=== PATIENT | male | born 1945 | race Caucasian/White ===

== ENCOUNTER 2020-01-03 14:15 | Observation (INO) ==
[2020-01-03 16:23] LABS: ABS Basophils 0.1 10^3/ul (0-0.2); ABS Eosinophils 0.3 10^3/ul (0-0.6); ABS Lymphocytes 1.2 10^3/ul (1.0-4.8); ABS Monocytes 0.8 10^3/ul (0-0.8); Eosinophil % 3.5 %; Hematocrit 34 % (42-52); Lymphocyte % 14.8 %; Mean Corpuscular HGB Conc 35 g/dL (31-36); Mean Corpuscular Hemoglobin 30 pg (27-31); Mean Corpuscular Volume 87 fL (80-94); Mean Platelet Volume 7.3 fL (7.4-10.4); Platelet Count 419 10^3/uL (150-450); Red Blood Count 3.94 10^6 /uL (4.18-5.48); Red Cell Distribution Width 17 % (10-15); White Blood Count 8.3 10^3/uL (3.5-10.8)
[2020-01-03 17:14] LABS: Albumin 3.8 g/dL (3.2-5.2); BUN/Creatinine Ratio 12.8 (8-20); Calcium 9.9 mg/dL (8.6-10.3); EGFR African American 80.5 (>60); EGFR Non-African American 66.5 (>60); Potassium 3.4 mmol/L (3.5-5.0); Total Bilirubin 0.7 mg/dL (0.2-1.0); Total Protein 7.8 g/dL (6.4-8.9)
[2020-01-03] MEDS ORDERED: NS 0.9% 1000 ml BAG 1,000 ML IV ONE (17:20)
[2020-01-03] MEDS ORDERED: Iohexol 350 (CONTRAST) 500 ML MDV IV ONE (17:28)
[2020-01-03] MEDS ORDERED: Ondansetron 4 mg VIAL 2 MG/ML 2 ml VIAL IV PRN (17:46)
[2020-01-03] MEDS ORDERED: Enoxaparin 40 MG/0.4 ML SYR SUBCUT SCH (18:00)
[2020-01-03 18:34] LABS: % Iron Saturation 14 % (15-55); Iron 38 ug/dL (50-212); Total Iron Binding Capacity 280 mcg/dL (250-450); Transferrin 200 mg/dL (203-362)
[2020-01-03 18:54] LABS: Ferritin 995.5 ng/mL (24-336)
[2020-01-03 22:35] LABS: Urine Appearance Clear; Urine Bilirubin Negative (Negative); Urine Blood Negative (Negative); Urine Color Yellow; Urine Glucose Negative (Negative); Urine Ketones Trace (Negative); Urine Nitrite Negative (Negative); Urine Protein Negative (Negative); Urine Specific Gravity 1.044 (1.010-1.030); Urine Urobilinogen Negative (Negative)
[2020-01-03 22:46] LABS: LDH 832 U/L (140-271)
[2020-01-03] MEDS ORDERED: Polyethylene Glycol 3350 17 GM PACKET PO PRN (23:22)
[2020-01-04] MEDS: Senna TAB 8.6 mg TAB PO PRN ×2 (00:11→12:15)
[2020-01-04 05:00] LABS: Hematocrit 29 % (42-52); Mean Corpuscular HGB Conc 35 g/dL (31-36); Mean Corpuscular Hemoglobin 30 pg (27-31); Mean Corpuscular Volume 87 fL (80-94); Mean Platelet Volume 7.2 fL (7.4-10.4); Platelet Count 332 10^3/uL (150-450); Red Blood Count 3.32 10^6 /uL (4.18-5.48); Red Cell Distribution Width 17 % (10-15); White Blood Count 6.8 10^3/uL (3.5-10.8)
[2020-01-04 05:11] LABS: BUN/Creatinine Ratio 11.8 (8-20); Calcium 8.5 mg/dL (8.6-10.3); EGFR African American 86.9 (>60); EGFR Non-African American 71.8 (>60); Magnesium 1.5 mg/dL (1.9-2.7); Potassium 3.4 mmol/L (3.5-5.0)
[2020-01-04] MEDS: Nystatin SUSPENSION 100,000 UNITS/ML UDC PO SCH ×3 (05:13→14:23)
[2020-01-04] MEDS ORDERED: Potassium Chlor 20 meq TAB.ER PO ONE (07:40)
[2020-01-04] MEDS ORDERED: Magnesium Sulfate 2 gm BAG 2 GM/50 ML BAG IVPB ONE (07:40)
[2020-01-04 11:47] VITALS: BP 138/84
[2020-01-04 14:34] LABS: Body Fluid Source Pleural Fluid
[2020-01-04 14:54] LABS: Body Fluid Mono 49 %
[2020-01-06 13:46] LABS: Lactate Dehydrogenase, BF 1140 U/L
[2020-01-06 15:52] LABS: Fluid Type, Protein, Total PLEURAL
== END 2020-01-04 15:27 | disposition home or self-care (01) ==
LOC: ED 14:15 → MEDTELE 14:15
PROVIDERS: ADMIT Internal Medicine; ATTEND Internal Medicine